=== PATIENT | male | born 1975 | race African-American/Black ===

== ENCOUNTER 2018-09-08 00:19 | Emergency (ER) | payer OTHER ==
[~2018-09-08] VITALS: Ht 180.3 cm; Wt 105.2 kg
[2018-09-08 00:37] VITALS: BP 173/85
[2018-09-08] MEDS ORDERED: CEPHALEXIN MONOHYDRATE 500 MG CAPSULE PO ONE ×2 (02:22→02:30)
[2018-09-08] MEDS ORDERED: IBUPROFEN 600 MG TABLET PO ONE ×2 (02:22→02:30)
[2018-09-14] MEDS ORDERED: HYDR-3972 PO (14:19)
[2018-09-14] MEDS ORDERED: RIVA10TA PO (14:19)
[2018-09-14] MEDS ORDERED: CLIN300C11 PO (14:19)
[2018-09-14] MEDS ORDERED: Rivaroxaban PO (14:19)
== END 2018-09-08 03:00 | disposition home or self-care (01) ==
LOC: EDBD → ER 00:26
DX: T63.391A Toxic effect of venom of other spider, accidental (unintentional), initial encounter (principal); L03.115 Cellulitis of right lower limb; F17.200 Nicotine dependence, unspecified, uncomplicated; Y92.89 Other specified places as the place of occurrence of the external cause

== ENCOUNTER 2018-09-10 00:32 | Inpatient (IN) | payer OTHER ==
[~2018-09-10] VITALS: Ht 180.3 cm; Wt 94.1 kg
--- NOTE | 2018-09-10 00:50 | NUR ---
BIB SELF. AAOX4. NAD, BREATHING EVEN AND UNLABORED. AMBULATORY. C/O MULTIPLE SPIDER BITES, 2 ON RLE - 1 ON CALF AND I ON DAVE, 1 ON RFA. NOTED REDNESS AND SWELLING WITH PAIN 11/04. PT STATES IT STARTED ABOUT 3-4 DAYS AGO AND WAS HERE ON TUESDAY AND GIVEN RX FOR ATB BUT UNABLE TO OBTAIN. TO ER BED 11. MD AT BEDSIDE FOR EVAL AWAITING ORDERS
[2018-09-10] MEDS ORDERED: VANCOMYCIN 1 GM in IV D5W 250 ML IV ONE (01:00)
[2018-09-10] MEDS ORDERED: VANCOMYCIN 1 GM VIAL ONE (01:01)
--- NOTE | 2018-09-10 01:15 | NUR ---
IV LINE OBTAINED ON L HAND 20G. BLOOD DRAWN AND GIVENT TO SUPERVISOR WOOD CREW AT BEDSIDE.
[2018-09-10 01:17] LABS: BASOPHILS # (AUTO) 0.1 /CMM (0.0-0.2); BASOPHILS % (AUTO) 0.4 % (0.0-2.0); HEMATOCRIT 40 % (39-51); HEMOGLOBIN 13.3 g/dL (13.5-17.5); LYMPHOCYTES # (AUTO) 1.1 /CMM (0.8-4.8); LYMPHOCYTES % (AUTO) 6.2 % (20.0-44.0); MEAN CORPUSCULAR HGB CONC 33 g/dl (31.0-36.0); MEAN CORPUSCULAR VOLUME 94 fL (80-96); MONOCYTES # (AUTO) 1.1 /CMM (0.1-1.30); MONOCYTES % (AUTO) 6.4 % (2.0-12.0); NEUTROPHILS # (AUTO) 14.9 /CMM (1.8-8.9); PLATELET COUNT (AUTO) 213 /CMM (150-450); RED BLOOD CELL COUNT(AUTO) 4.27 MIL/uL (4.5-6.0); WHITE BLOOD COUNT (AUTO) 17.3 K/uL (4.3-11.0)
[2018-09-10 01:25] LABS: CALCIUM, SERUM 8.2 mg/dL (8.5-10.1); CARBON DIOXIDE 29 mmol/L (21-32); CHLORIDE 103 mmol/L (98-107); CREATININE 1.3 mg/dL (0.6-1.3); GLUCOSE 120 mg/dL (74-106); POTASSIUM 3.8 mmol/L (3.5-5.1); SODIUM SERUM 139 mmol/L (136-145); UREA NITROGEN, BLOOD 14 mg/dL (7-18)
--- NOTE | 2018-09-10 02:26 | NUR ---
Note undone in EDM - 09/10/18 at 0228 by ANTHONY BIB SELF. AAOX4. NAD, BREATHING EVEN AND UNLABORED. AMBULATORY. C/O MULTIPLE SPIDER BITES, 2 ON RLE - 1 ON CALF AND I ON DAVE, 1 ON RFA. NOTED REDNESS AND SWELLING WITH PAIN 11/04. PT STATES IT STARTED ABOUT 3-4 DAYS AGO AND WAS HERE ON TUESDAY AND GIVEN RX FOR ATB BUT UNABLE TO OBTAIN. TO ER BED 11. MD AT BEDSIDE FOR EVAL AWAITING ORDERS
--- NOTE | 2018-09-10 02:50 | NUR ---
MD AWARE OF BP 94/55. ORDER RECEIVED FOR 1L NS BOLUS
[2018-09-10] MEDS ORDERED: IV NS 0.9% 1,000 ML BAG IV ONE (03:00)
--- NOTE | 2018-09-10 03:40 | NUR ---
REPORT GIVEN TO TINA BERRIOS FOR NOEMÍ. PT GOING TO [address] [facility]
--- NOTE | 2018-09-10 03:41 | NUR ---
BACK SEWER AT BEDSIDE FOR REFLEX LACTIC ACID
--- NOTE | 2018-09-10 03:55 | NUR ---
PT BEING TRANSPORTED ON GURNEY TO UNIT WITH RN AT BEDSIDE. PT IN STABLE CONDITTION WHILE ON TRANSPORT. NAD NOTED. PT AMBULATED FROM GURNEY TO BED WITH STEADY GAIT W/O ASSISTACE.
[2018-09-10 04:00] VITALS: BP 125/69
[2018-09-10 04:04] LABS: BILIRUBIN,DIRECT 0.1 mg/dL (0.0-0.2); BILIRUBIN,TOTAL 0.3 mg/dL (0.2-1.0)
--- NOTE | 2018-09-10 04:12 | NUR ---
MS/RN OPENING NOTES PT ARRIVED TO UNIT FROM ER VIA GURNEY. PT IS A/OX4. ON ROOM AIR, BREATHING EVEN AND UNLABORED. DENIES SOB. IN NO ACUTE RESPIRATORY DISTRESS. C/O DULL CONSTANT BURNING PAIN 11/04 TO RUE AND RLE. AWAITING ADMITTING ORDERS. PT AWARE AND VERBALIZED UNDERSTANDING. IV TO LEFT HAND #20 PATENT AND INTACT. ORIENTED PT TO ROOM AND CALL LIGHT. BELONGINGS LIST COMPLETED. HOB ELEVATED. BILATERAL UPPER SIDE RAILS IN PLACE, BED IN LOW/LOCKED POSITION. WILL CONTINUE TO MONITOR
[2018-09-10] MEDS ORDERED: ONDANSETRON HCL/PF 4 MG/2 ML VIAL IVP PRN (04:30)
[2018-09-10] MEDS ORDERED: ACETAMINOPHEN 325 MG TABLET PO PRN (04:30)
[2018-09-10] MEDS ORDERED: IV NS 0.9% 1,000 ML IV SCH (04:30)
[2018-09-10 04:41] VITALS: BP 125/69
[2018-09-10] MEDS: HYDROCODONE/APAP 5/325MG 1 EACH TABLET PO PRN ×2 (05:13→20:29)
[2018-09-10] MEDS ORDERED: AMPH15TA2 PO (06:07)
[2018-09-10] MEDS ORDERED: AMIT50TA3 PO (06:07)
[2018-09-10] MEDS ORDERED: CLON0.5T PO (06:07)
--- NOTE | 2018-09-10 06:56 | NUR ---
MS/RN CLOSING NOTES PT ASLEEP, RESPONSIVE TO NAME. REMAINS ON ROOM AIR, BREATHING EVEN AND UNLABORED. DENIES SOB AND PAIN AT THIS TIME. PRN NORCO EFFECTIVE. WOUND CX TAKEN FROM RFA. IV TO LEFT HAND PATENT AND INTACT RUNNING IVF ORDERED. STEVE MENON MADE AWARE TO REVIEW MEDRECON. NO SIGNIFICANT CHANGES OVERNIGHT. ALL NEEDS MET. BED IN LOW/LOCKED POSITION WITH CALL LIGHT IN REACH, BILAT. UPPER SIDE RAILS IN PLACE. HOB ELEVATED. WILL ENDORSE TO DAY SHIFT RN NOEMÍ.
[2018-09-10] MEDS ORDERED: PANTOPRAZOLE 40 MG VIAL IV SCH (07:30)
[2018-09-10 08:00] VITALS: BP 98/42
[2018-09-10] MEDS ORDERED: FEE PK DOSING 1 MIN EA MC ONE (09:25)
[2018-09-10] MEDS: VANCOMYCIN 1.25 GM in IV D5W 500 ML IV SCH (13:29)
[2018-09-10 16:00] VITALS: BP 92/55
[2018-09-10] MEDS ORDERED: ZOSYN IVPB 3.375 G in IV D5W 50ml IV ONE (16:30)
[2018-09-10] MEDS: PIPERACILLIN /TAZOBACTAM 3.375 G in IV D5W 50 ML IV SCH ×2 (17:33→23:13)
--- NOTE | 2018-09-10 19:24 | NUR ---
PT IS A/OX4. ON ROOM AIR, BREATHING EVEN AND UNLABORED. DENIES PAIN. IV TO LEFT HAND #20 PATENT AND INTACT. CALL LIGHT WITHIN REACH. HOB ELEVATED. BILATERAL UPPER SIDE RAILS IN PLACE, BED IN LOW/LOCKED POSITION. WILL ENDORSE TO NEXT SHIFT FOR NOEMÍ.
--- NOTE | 2018-09-10 19:25 | NUR ---
MS RN OPENING NOTES Received patient asleep, easily awaken, on supine position on bed. On RA, no SOB/respiratory distress noted. Kept RUE elevated with 1 pillow. Encouraged patient to comply warm compress 15-20 mins Q1H, patient verbalized to do it during the day. Kept patient comfortable on bed. Call light within easy reach. Will continue to monitor accordingly.
[2018-09-10 20:00] VITALS: BP 94/50
[2018-09-10] MEDS: PANTOPRAZOLE 40 MG TABLET.DR PO SCH (20:05)
[2018-09-11] MEDS: VANCOMYCIN 1.25 GM in IV D5W 500 ML IV SCH ×3 (00:16→21:14)
[2018-09-11] MEDS: IV NS 0.9% 1,000 ML IV PRN ×2 (03:08→17:19)
[2018-09-11] MEDS: PIPERACILLIN /TAZOBACTAM 3.375 G in IV D5W 50 ML IV SCH ×3 (05:44→16:56)
--- NOTE | 2018-09-11 06:43 | NUR ---
MS RN CLOSING NOTES Patient asleep on bed with patent IV line L hand G#20 with NS @100 ml/hr, no complaints made within the shift. RUE kept elevated with 1 pillow. All due meds given, no ASE noted. All nursing needs attended. Afebrile the whole shift. Kept bed low and locked, call light within easy reach. Endorsed to the next shift.
--- NOTE | 2018-09-11 07:52 | NUR ---
WOUND CARE CONSULT: PT PRESENTS WITH LARGE SWOLLEN RT ARM WELL ESCHAR TO RT CALF AND TO RT ANTERIOR LOWER LEG, PRESENT ON ADMISSION. RECOMMEND DPM CONSULT. DEFER TO MD FOR ARM. WILL SEE PRN. PT INDEPENDENT WITH BED MOBILITY AND CONTINENT. CURRENT BRONSON SCORE IS 21.
[2018-09-11 08:00] VITALS: BP 109/65
--- NOTE | 2018-09-11 09:02 | NUR ---
INITIAL RESULT OF DUPLEX VENOUS UPPER EXT RIGHT TEST SHOWED POSITIVE FOR THROMBUS AT AXILLARY LEVEL. ADVISED TINA MANN AND DARRIUS ON FINDINGS.
--- NOTE | 2018-09-11 09:34 | NUR ---
patient positive for DVT Right Upper Arm. DR. Booker notified
[2018-09-11] MEDS: PANTOPRAZOLE 40 MG TABLET.DR PO SCH ×2 (09:36→21:14)
--- NOTE | 2018-09-11 09:45 | NUR ---
Start on Xarelto 15mg PO BID per Dr.Sam hameed
[2018-09-11] MEDS: HYDROCODONE/APAP 5/325MG 1 EACH TABLET PO PRN (11:59)
[2018-09-11 12:25] LABS: BASOPHILS % (AUTO) 0.5 % (0.0-2.0); EOSINOPHILS % (AUTO) 2.4 % (0.0-6.0); HEMATOCRIT 35 % (39-51); HEMOGLOBIN 11.8 g/dL (13.5-17.5); MEAN CORPUSCULAR HGB CONC 33 g/dl (31.0-36.0); MEAN CORPUSCULAR VOLUME 93 fL (80-96); MONOCYTES # (AUTO) 0.8 /CMM (0.1-1.30); NEUTROPHILS # (AUTO) 5.8 /CMM (1.8-8.9); NEUTROPHILS % (AUTO) 74.1 % (43.0-81.0); PLATELET COUNT (AUTO) 235 /CMM (150-450); RED BLOOD CELL COUNT(AUTO) 3.79 MIL/uL (4.5-6.0); WHITE BLOOD COUNT (AUTO) 7.9 K/uL (4.3-11.0)
[2018-09-11 12:52] LABS: ALBUMIN 2.2 g/dL (3.4-5.0); BILIRUBIN,TOTAL 0.4 mg/dL (0.2-1.0); CALCIUM, SERUM 8.3 mg/dL (8.5-10.1); CREATININE 0.9 mg/dL (0.6-1.3); MAGNESIUM 2.1 mg/dL (1.8-2.4); PHOSPHORUS 2.8 mg/dL (2.5-4.9); TOTAL PROTEIN, SERUM 6.2 g/dL (6.4-8.2)
[2018-09-11 12:53] LABS: THYROID STIMULATING HORMONE 1.652 uIU/mL (0.358-3.74)
[2018-09-11 16:00] VITALS: BP 111/69
[2018-09-11] MEDS: LACTOBACILLUS RHAMNOSUS GG 1 EACH CAP.SPRINK PO SCH (16:55)
[2018-09-11] MEDS: RIVAROXABAN 15 MG TABLET PO SCH (16:58)
--- NOTE | 2018-09-11 17:10 | NUR ---
Paged regarding home meds reconciliation
--- NOTE | 2018-09-11 19:00 | NUR ---
Patient on room air, a/o x4. No distress noted, no complains of pain at this time. Patient seen by wound care nurse and today. Wound care done as directed. IV line remain intact and patent, fluid running as ordered. Safety precautions in place. Will endorse to next shift for NOEMÍ.
--- NOTE | 2018-09-11 19:35 | NUR ---
MS/RN OPENING NOTES PT RECEIVED ASLEEP, RESPONSIVE TO NAME. A/OX4. ON ROOM AIR, BREATHING EVEN AND UNLABORED. DENIES SOB AND PAIN AT THIS TIME. IV TO LEFT HAND PATENT AND INTACT RUNNING IVF ORDERED. BED IN LOW/LOCKED POSITION WITH CALL LIGHT IN REACH. BILAT. UPPER SIDE RAILS IN PLACE, HOB ELEVATED. RUE ELEVATED ON PILLOW. WILL CONTINUE TO MONITOR
[2018-09-11 20:00] VITALS: BP 140/86
[2018-09-12] MEDS: PIPERACILLIN /TAZOBACTAM 3.375 G in IV D5W 50 ML IV SCH ×4 (00:44→17:08)
[2018-09-12] MEDS: VANCOMYCIN 1.25 GM in IV D5W 500 ML IV SCH ×3 (05:24→21:39)
--- NOTE | 2018-09-12 06:24 | NUR ---
MS/RN NOTES IV TO LEFT HAND LEAKING. INSERTED NEW IV TO LFA #22, GOOD BLOOD RETURN NOTED, FLUSHES WELL. IV VANCO RESUMED.
[2018-09-12 06:43] LABS: CREATININE 0.8 mg/dL (0.6-1.3); POTASSIUM 4.1 mmol/L (3.5-5.1)
--- NOTE | 2018-09-12 07:00 | NUR ---
MS/RN CLOSING NOTES PT ASLEEP, RESPONSIVE TO NAME. A/OX3. ON ROOM AIR, BREATHING EVEN AND UNLABORED. DENIES SOB AND PAIN AT THIS TIME. WOUND CARE RENDERED ORDERED. IV TO LFA PATENT AND INTACT STILL RUNNING IV VANCO. NO SIGNIFICANT CHANGES OVERNIGHT. ALL NEEDS MET. BED IN LOW/LOCKED POSITION WITH CALL LIGHT IN REACH. BILAT. UPPER SIDE RAILS IN PLACE. HOB ELEVATED. WILL ENDORSE TO DAY SHIFT RN NOEMÍ.
--- NOTE | 2018-09-12 07:52 | NUR ---
MS RN OPENING NOTES RECEIVED PT LAYING IN BED W/ HOB SLIGHTLY ELEVATED. PT IS EASILY AROUSABLE. PT IS A/O X4, AFEBRILE. RESPIRATIONS ARE EVEN AND UNLABORED, NOT IN ANY ACUTE DISTRESS NOTED. PT C/O PAIN TO R ARM 11/04, OFFERED PAIN MEDICATION AND PT STATED "I DONT NEED IT RIGHT NOW." NO C/O SOB,N/V. IV SITE TO LFA INTACT, NO INFILTRATION NOTED. DRESSING KEPT CLEAN AND DRY. SAFETY MEASURES ARE IN PLACE. INSTRUCTED PT TO USE CALL LIGHT WHEN ASSISTANCE IS NEEDED, CALL LIGHT IS LEFT WITHIN REACH. WILL MONITOR THROUGHOUT SHIFT FOR CONTINUITY OF CARE.
[2018-09-12 08:00] VITALS: BP 106/70
[2018-09-12] MEDS: LACTOBACILLUS RHAMNOSUS GG 1 EACH CAP.SPRINK PO SCH ×2 (08:31→16:46)
[2018-09-12] MEDS: PANTOPRAZOLE 40 MG TABLET.DR PO SCH ×2 (08:31→21:39)
[2018-09-12] MEDS: RIVAROXABAN 15 MG TABLET PO SCH ×2 (08:32→16:50)
[2018-09-12] MEDS ORDERED: LIDOCAINE 1%-EPI 1:100,000 20 ML VIAL TP ONE (14:00)
--- NOTE | 2018-09-12 14:47 | NUR ---
MS RN NOTES-- PT WAS SEEN AND EXAMINED BY CURTIS ACEVEDO. I&D OF RFA ORDERED, CONSENT SIGNED. I&D DONE AT BEDSIDE. PT TOLERATED WELL. DRESSING DONE BY CURTIS ACEVEDO WITH IODOSORB PACKING, COVERED WITH KERLIX.
[2018-09-12] MEDS: HYDROCODONE/APAP 5/325MG 1 EACH TABLET PO PRN ×2 (15:17→21:42)
[2018-09-12 16:00] VITALS: BP 123/70
--- NOTE | 2018-09-12 18:39 | NUR ---
MS RN CLOSING NOTES ALL DUE MEDS GIVEN, NEEDS MET AND RENDERED. PT IS A/O X4, AFEBRILE. RESPIRATIONS ARE EVEN AND UNLABORED, NOT IN ANY ACUTE DISTRESS NOTED. PT DENIES ANY PAIN AT THIS TIME, NO C/O SOB, N/V. IV SITE TO LFA INTACT, NO INFILTRATION NOTED. DRESSING KEPT CLEAN AND DRY. DRESSING CHANGE DONE TO RFA. SAFETY MEASURES ARE IN PLACE. REMINDED PT TO USE CALL LIGHT WHEN ASSISTANCE IS NEEDED, CALL LIGHT IS LEFT WITHIN REACH. WILL ENDORSE TO NEXT SHIFT FOR CONTINUITY OF CARE.
--- NOTE | 2018-09-12 19:30 | NUR ---
MS/RN OPENING NOTES PT RECEIVED WATCHING TV AND RESTING COMFORTABLY IN BED. ON ROOM AIR, BREATHING EVEN AND UNLABORED. DENIES SOB, IN NO ACUTE RESPIRATORY DISTRESS. WITH C/O 7/10 PAIN TO RFA, WILL ADMINISTER PAIN MEDICATIONS IF DUE. IV TO LFA PATENT AND INTACT RUNNING IVF ORDERED. DRESSING TO RFA MINIMALLY SOILED, WILL PERFORM DRESSING CHANGE. BED IN LOW/LOCKED POSITION WITH CALL LIGHT IN REACH, BILAT. UPPER SIDE RAILS IN PLACE AND HOB ELEVATED. WILL CONTINUE TO MONITOR
[2018-09-12 20:00] VITALS: BP 115/67
[2018-09-13] MEDS: PIPERACILLIN /TAZOBACTAM 3.375 G in IV D5W 50 ML IV SCH ×5 (00:33→23:55)
[2018-09-13 04:26] LABS: BASOPHILS % (AUTO) 0.4 % (0.0-2.0); EOSINOPHILS % (AUTO) 3.8 % (0.0-6.0); HEMATOCRIT 36 % (39-51); HEMOGLOBIN 11.9 g/dL (13.5-17.5); LYMPHOCYTES # (AUTO) 1.3 /CMM (0.8-4.8); LYMPHOCYTES % (AUTO) 25.1 % (20.0-44.0); MEAN CORPUSCULAR HGB CONC 33 g/dl (31.0-36.0); MEAN CORPUSCULAR VOLUME 94 fL (80-96); MONOCYTES # (AUTO) 0.8 /CMM (0.1-1.30); MONOCYTES % (AUTO) 14.7 % (2.0-12.0); PLATELET COUNT (AUTO) 291 /CMM (150-450); RED BLOOD CELL COUNT(AUTO) 3.86 MIL/uL (4.5-6.0); WHITE BLOOD COUNT (AUTO) 5.3 K/uL (4.3-11.0)
[2018-09-13 04:39] LABS: CALCIUM, SERUM 8.2 mg/dL (8.5-10.1); PHOSPHORUS 3.7 mg/dL (2.5-4.9); POTASSIUM 3.9 mmol/L (3.5-5.1)
[2018-09-13] MEDS: VANCOMYCIN 1.25 GM in IV D5W 500 ML IV SCH ×3 (05:46→21:03)
[2018-09-13] MEDS: IV NS 0.9% 1,000 ML IV PRN (06:05)
--- NOTE | 2018-09-13 07:45 | NUR ---
MS RN OPENING NOTES RECEIVED PT LAYING IN BED, SLEEPING COMFORTABLY. PT IS EASILY AROUSABLE. PT IS A/O X4, AFEBRILE. RESPIRATIONS ARE EVEN AND UNLABORED, NOT IN ANY ACUTE DISTRESS NOTED. PT DENIES ANY PAIN AT THIS TIME, NO C/O SOB,N/V. IV SITE TO LFA INTACT, NO INFILTRATION NOTED. DRESSING KEPT CLEAN AND DRY. SAFETY MEASURES ARE IN PLACE. INSTRUCTED PT TO USE CALL LIGHT WHEN ASSISTANCE IS NEEDED, CALL LIGHT IS LEFT WITHIN REACH. WILL MONITOR THROUGHOUT SHIFT FOR CONTINUITY OF CARE.
--- NOTE | 2018-09-13 07:53 | NUR ---
MS/RN CLOSING NOTES PT AWAKE, RESTING COMFORTABLY IN BED. ON ROOM AIR, BREATHING EVEN AND UNLABORED. DENIES SOB AND PAIN AT THIS TIME. IV TO LEFT WRIST PATENT AND INTACT CURRENTLY INFUSING VANCOMYCIN. NO SIGNIFICANT CHANGES OVERNIGHT. ALL NEEDS MET. WOUND CARE DONE ORDERED. BED IN LOW/LOCKED POSITION WITH CALL LIGHT IN REACH, BILAT UPPER SIDE RAILS IN PLACE. HOB ELEVATED. RUE ELEVATED. ENDORSED TO DAY SHIFT RN NOEMÍ.
[2018-09-13 08:00] VITALS: BP 112/61
--- NOTE | 2018-09-13 08:25 | NUR ---
MS WILDER NOTES-- CALLED STEVE THAYER TO RELAY INR RESULTS OF 2.24 PT WONT BE ABLE TO GET PROCEDURES DONE TODAY FOR INCREASED INR. STILL WAITING A CALL BACK. Addendum: 09/13/18 at 1323 by ENRIQUE CARMIHCAEL RN INCORRECT CHART. PLS DISREGARD.
[2018-09-13] MEDS: PANTOPRAZOLE 40 MG TABLET.DR PO SCH ×2 (08:43→21:03)
[2018-09-13] MEDS: LACTOBACILLUS RHAMNOSUS GG 1 EACH CAP.SPRINK PO SCH ×2 (08:43→17:08)
[2018-09-13] MEDS: RIVAROXABAN 15 MG TABLET PO SCH ×2 (08:48→17:09)
[2018-09-13] MEDS: HYDROCODONE/APAP 5/325MG 1 EACH TABLET PO PRN ×2 (11:33→21:04)
--- NOTE | 2018-09-13 11:36 | NUR ---
MS RN NOTES-- DRESSING CHANGE DONE TO RFA BY CURTIS BYERS. PT TOLERATED WELL. WILL CHANGE PRN.
--- NOTE | 2018-09-13 18:27 | NUR ---
MS RN CLOSING NOTES ALL DUE MEDS GIVEN, NEEDS MET AND RENDERED. PT IS A/O X4, AFEBRILE. RESPIRATIONS ARE EVEN AND UNLABORED, NOT IN ANY ACUTE DISTRESS NOTED. PT DENIES ANY PAIN AT THIS TIME, NO C/O SOB, N/V. IV SITE TO LFA INTACT, NO INFILTRATION NOTED. DRESSING KEPT CLEAN AND DRY. SAFETY MEASURES ARE IN PLACE. REMINDED PT TO USE CALL LIGHT WHEN ASSISTANCE IS NEEDED, CALL LIGHT IS LEFT WITHIN REACH. WILL ENDORSE TO NEXT SHIFT FOR CONTINUITY OF CARE.
--- NOTE | 2018-09-13 19:07 | NUR ---
RN MS OPENING NOTES RECEIVED PATIENT IN BED AWAKE ALERT AND ORIENTED X4, RESPIRATIONS EVEN AND UNLABORED WITH EQUAL RISE AND FALL OF CHEST, DENIES ANY PAIN OR DISCOMFORT AT THIS TIME,IV SITE TO LEFT FA #22 G INTACT AND PATENT, ORIENTED TO STAFF AND CALL LIGHT AND KEPT WITHIN REACH, SAFETY PRECAUTIONS IN PLACE, LOW BED AND LOCKED, DRESSING TO RIGHT ARM INTACT AND DRY. FLUID OFFERED ALL NEEDS ATTENDED AT THIS TIME, REMAINS COMFORTABLE ALL NEEDS ATTENDED WILL CONTINUE TO MONITOR.
[2018-09-13 20:00] VITALS: BP 110/64
--- NOTE | 2018-09-13 21:04 | NUR ---
RN MS NOTES PATIENT COMPLAINT OF PAIN TO RIGHT ARM REQUESTING FOR NORCO PRN NORCO GIVEN VS WNL. WILL CONTINUE TO MONITOR FOR EFFECTIVENESS.
[2018-09-14] MEDS: IV NS 0.9% 1,000 ML IV PRN (03:06)
[2018-09-14] MEDS: PIPERACILLIN /TAZOBACTAM 3.375 G in IV D5W 50 ML IV SCH ×2 (05:00→12:22)
[2018-09-14] MEDS: VANCOMYCIN 1.25 GM in IV D5W 500 ML IV SCH (05:34)
[2018-09-14 06:29] LABS: BASOPHILS # (AUTO) 0.1 /CMM (0.0-0.2); EOSINOPHILS % (AUTO) 4.4 % (0.0-6.0); HEMATOCRIT 37 % (39-51); HEMOGLOBIN 12.3 g/dL (13.5-17.5); LYMPHOCYTES # (AUTO) 1.4 /CMM (0.8-4.8); LYMPHOCYTES % (AUTO) 29.6 % (20.0-44.0); MEAN CORPUSCULAR HGB CONC 33 g/dl (31.0-36.0); MEAN CORPUSCULAR VOLUME 94 fL (80-96); MONOCYTES # (AUTO) 0.7 /CMM (0.1-1.30); MONOCYTES % (AUTO) 14.1 % (2.0-12.0); NEUTROPHILS # (AUTO) 2.4 /CMM (1.8-8.9); NEUTROPHILS % (AUTO) 50.9 % (43.0-81.0); PLATELET COUNT (AUTO) 315 /CMM (150-450); RED BLOOD CELL COUNT(AUTO) 3.94 MIL/uL (4.5-6.0); WHITE BLOOD COUNT (AUTO) 4.8 K/uL (4.3-11.0)
[2018-09-14 06:30] LABS: CALCIUM, SERUM 8.3 mg/dL (8.5-10.1)
--- NOTE | 2018-09-14 07:34 | NUR ---
RN MS CLOSING NOTES PATIENT IN BED AWAKE ALERT AND ORIENTED X4, RESPIRATIONS EVEN AND UNLABORED WITH EQUAL RISE AND FALL OF CHEST, DENIES ANY PAIN OR DISCOMFORT AT THIS TIME,IV SITE TO LEFT FA #22 G INTACT AND PATENT, CALL LIGHT KEPT WITHIN REACH, SAFETY PRECAUTIONS IN PLACE, LOW BED AND LOCKED, DRESSING TO RIGHT ARM INTACT AND DRY. ABX RUNNING ORDERED,FLUIDS OFFERED ALL NEEDS ATTENDED AT THIS TIME, REMAINS COMFORTABLE ALL NEEDS ATTENDED WILL CONTINUE TO MONITOR AND ENDORSE TO NEXT SHIFT.NO CHANGES THROUGHOUT SHIFT.
--- NOTE | 2018-09-14 07:35 | NUR ---
MS RN OPENING NOTES RECEIVED PATIENT IN BED AWAKE, A/O X4. VERBALLY RESPONSIVE, DENIES PAIN OR ANY DISCOMFORTS AT THIS TIME. DRESSING ON RIGHT ARM C/D/I. ON ROOM AIR, RESPIRATIONS EVEN AND UNLABORED. IV ACCESS ON TO LFA G#22 G INTACT AND PATENT, IVF INFUSING ORDERED, NO S/S OF INFILTRATIONS NOTED. SAFETY PRECAUTIONS IN PLACE. BED IN LOW LOCKED POSITION WITH SR UP X2. CALL LIGHT WITHIN REACH. WILL CONTINUE TO MONITOR ACCORDINGLY.
[2018-09-14 08:00] VITALS: BP 115/75
[2018-09-14] MEDS: LACTOBACILLUS RHAMNOSUS GG 1 EACH CAP.SPRINK PO SCH ×2 (08:56→17:00)
[2018-09-14] MEDS: PANTOPRAZOLE 40 MG TABLET.DR PO SCH (08:56)
[2018-09-14] MEDS: RIVAROXABAN 15 MG TABLET PO SCH ×2 (08:57→17:00)
[2018-09-14] MEDS: HYDROCODONE/APAP 5/325MG 1 EACH TABLET PO PRN (09:00)
--- NOTE | 2018-09-14 09:02 | NUR ---
RN NOTES PATIENT C/O ACHING PAIN ON RIGHT ARM WITH SCALE OF 6/7. PRN NORCO 5/325MG PO GIVEN AT 0900. WILL CONTINUE TO MONITOR AND REASSESS
[2018-09-14] MEDS ORDERED: VANCOMYCIN 1 GM in IV D5W 250 ML IV SCH (13:00)
[2018-09-14] MEDS ORDERED: CLIN300C11 PO (14:19)
[2018-09-14] MEDS ORDERED: HYDR-3972 PO (14:19)
[2018-09-14] MEDS ORDERED: RIVA10TA PO (14:19)
[2018-09-14] MEDS ORDERED: Rivaroxaban PO (14:19)
[2018-09-14] MEDS ORDERED: CLINDAMYCIN 600 MG in IV D5W 50 ML IV SCH (15:00)
[2018-09-14 16:00] VITALS: BP 114/66
--- NOTE | 2018-09-14 17:04 | NUR ---
SERICULTURIST NOTES PATIENT DISCHARGED HOME IN STABLE CONDITION. A/O X4. ABLE TO MAKE NEEDS KNOWN, NO COMPLAINED VOICED DURING DISCHARGE. V/S TAKEN, STABLE AND RECORDED. PHOTOS OF SKIN ISSUES TAKEN AND FILED ON CHART. ALL BELONGINGS ACCOUNTED FOR. IV ACCESS REMOVED, NO BLEEDING NOTED AND PRESSURE GAUZE APPLIED. NAME ARMBAND REMOVED. HEALTH TEACHINGS/DISCHARGE INSTRUCTIONS GIVEN TO PT AND VERBALIZED UNDERSTANDING. TWO PRESCRIPTIONS HANDED TO PT. PT LEFT UNIT @ 1700 AMBULATORY.
== END 2018-09-14 17:00 | disposition home or self-care (01) | DRG 720 ==
LOC: EDBD 00:35 → ER 00:35 → MEDSG2 03:28
PROVIDERS: ATTEND Hospitalist
PROC: 0J9G3ZZ Drainage of Right Lower Arm Subcutaneous Tissue and Fascia, Percutaneous Approach (ICD-10-PCS; principal; 2018-09-12)
DX: A41.9 Sepsis, unspecified organism (principal); I82.A11 Acute embolism and thrombosis of right axillary vein; L97.219 Non-pressure chronic ulcer of right calf with unspecified severity; E44.1 Mild protein-calorie malnutrition; S81.811A Laceration without foreign body, right lower leg, initial encounter; L02.413 Cutaneous abscess of right upper limb; T63.301A Toxic effect of unspecified spider venom, accidental (unintentional), initial encounter; L03.113 Cellulitis of right upper limb; S41.151A Open bite of right upper arm, initial encounter; Y92.89 Other specified places as the place of occurrence of the external cause; Z79.899 Other long term (current) drug therapy; E66.9 Obesity, unspecified; Z68.28 Body mass index [BMI] 28.0-28.9, adult
CPT/HCPCS: 36415; 80048-TC; 80053-TC; 80061-TC; 80202-TC; 82247-TC; 82248-TC; 83605-TC; 83735-TC; 84100-TC; 84443-TC; 85025-TC; 85730-TC; 87040-TC; 87070-TC; 87081-TC; 87186-TC; 93971-TC; A6403; A6407; G0378; J2543; J3370; J3490; J7030; J7060